=== PATIENT | male | born 1980 | race Caucasian/White ===

== ENCOUNTER 2018-08-03 08:08 | Day surgery (SDC) | payer OTHER ==
[2018-07-28 10:49] LABS: BASOPHILS 0.3 % (0-2); EOSINOPHILS 1.7 % (0-7); HEMATOCRIT 45.6 % (42.0-54.0); HEMOGLOBIN 16.2 g/dL (13.5-17.5); IMMATURE GRANULOCYTES 0.6 % (0-5); MCH 33.5 pg (26.0-34.0); MCHC 35.5 g/dL (31.0-37.0); MCV 94.2 fL (80.0-100.0); MEAN PLATELET VOLUME 8.8 fL (7.4-10.4); NEUTROPHILS 53.4 % (40-80); PLATELET COUNT 272 10x3/uL (130-400); RBC 4.84 10x6/uL (4.20-6.10); RDW 12.5 % (11.5-14.5); WBC 7.9 10x3/uL (4.8-10.8)
[2018-07-28 10:55] LABS: CALCIUM 8.5 mg/dL (8.5-10.1); CARBON DIOXIDE 28.4 mmol/L (21.0-32.0); CREATININE - SERUM 1.2 mg/dL (0.6-1.3); POTASSIUM - SERUM 4.4 mmol/L (3.5-5.1)
[~2018-08-03] VITALS: Ht 190.5 cm; Wt 140.6 kg
[~2018-08-03 08:08] MED LIST: AMBIEN10 MG PO; TOPROL XL25 MG PO
[2018-08-03] MEDS ORDERED: ATIVAN1 MG PO (09:32)
[2018-08-03] MEDS ORDERED: CYCLOBENZAPRINE10 MG PO (09:33)
[2018-08-03 09:52] VITALS: BP 128/78; Ht 190.5 cm; Wt 140.6 kg
--- NOTE | 2018-08-03 16:07 | NUR ---
1525 - PT AWAKENED ARGUMENTATIVE AND NON-COMPLIANT, REFUSES TO WEAR OXYGEN VIA ANY DELIVERY METHOD. WILL MONITOR, SPO2 AT 94%.
== END 2018-08-03 17:15 | disposition home or self-care (01) ==
LOC: D.OPS 08:08 → D.PAN 09:45 → D.OPS 09:45
PROVIDERS: Orthopaedic Surgery
DX: M65.811 Other synovitis and tenosynovitis, right shoulder (principal); M19.011 Primary osteoarthritis, right shoulder; M75.41 Impingement syndrome of right shoulder; Z01.812 Encounter for preprocedural laboratory examination